=== PATIENT | male | born 1995 | race Caucasian/White ===

== ENCOUNTER 2017-04-02 22:20 | Emergency (ER) | payer SELFPAY ==
[2017-04-03 00:39] VITALS: BP 126/94
== END 2017-04-03 00:39 | disposition home or self-care (01) ==
LOC: ED 22:20
DX: S93.602A Unspecified sprain of left foot, initial encounter (principal); W22.09XA Striking against other stationary object, initial encounter; Y93.66 Activity, soccer; Y99.8 Other external cause status; Y92.89 Other specified places as the place of occurrence of the external cause

== ENCOUNTER 2017-07-12 16:14 | Emergency (ER) | payer MEDICAID ==
[~2017-07-12] VITALS: Ht 165.1 cm; Wt 79.8 kg
[2017-07-12 20:03] VITALS: BP 137/82
== END 2017-07-12 20:03 | disposition home or self-care (01) ==
LOC: ED 16:14
DX: S80.12XA Contusion of left lower leg, initial encounter (principal); R03.0 Elevated blood-pressure reading, without diagnosis of hypertension; X58.XXXA Exposure to other specified factors, initial encounter; Y93.66 Activity, soccer; Y92.322 Soccer field as the place of occurrence of the external cause; Y99.8 Other external cause status
CPT/HCPCS: J1885

== ENCOUNTER 2018-12-08 13:03 | Emergency (ER) | payer MEDICAID ==
[~2018-12-08] VITALS: Ht 167.6 cm; Wt 75.3 kg
[2018-12-08 13:07] VITALS: Ht 167.6 cm; Wt 75.3 kg
[2018-12-08 14:35] VITALS: BP 130/80
== END 2018-12-08 14:46 | disposition home or self-care (01) ==
LOC: ED 13:03
DX: S90.31XA Contusion of right foot, initial encounter (principal); W51.XXXA Accidental striking against or bumped into by another person, initial encounter; Y93.66 Activity, soccer; Y92.89 Other specified places as the place of occurrence of the external cause; Y99.8 Other external cause status